=== PATIENT | female | born 1995 | race Caucasian/White ===

== ENCOUNTER 2020-07-16 06:17 | Inpatient (IN) | payer OTHER, SELFPAY ==
[2020-07-16] VITALS (13 sets, daily range): BP systolic 86–135; BP diastolic 53–81; PULSE 62–91; RESP 16–18; TEMP 36.8–37.2; O2SAT 97
[2020-07-16] MEDS: LACTATED RINGERS 1,000 ML 125 ML IV CONT (06:50)
[2020-07-16 07:04] LABS: Basophils Percent Auto 0.2 % (0.2-1.2); Eosinophils Absolute Auto 0.1 K/mm3 (0-0.3); Eosinophils Percent Auto 0.3 % (0-4.4); Hematocrit 40.3 % (37.0-47.0); Hemoglobin 13.4 g/dL (12.0-15.0); Immature Granulocyte Absolute 0.07 K/mm3 (0.00-0.031); Immature Granulocyte Percent A 0.5 % (0-0.5); Lymphocytes Absolute Auto 2.45 K/mm3 (0.9-3.2); Mean Corpuscular HGB Conc 33.3 g/dl (32-36); Mean Corpuscular Hemoglobin 26.5 pg (26-34); Mean Corpuscular Volume 79.6 fl (80-100); Mean Platelet Volume 10.5 fl (7.4-10.4); Monocytes Absolute Auto 0.9 K/mm3 (0.1-0.6); Platelet Count Result 245 k/mm3 (150-375); Red Blood Count 5.06 M/mm3 (4.2-5.4); Red Cell Distribution Width 14.1 % (11.5-14.5); White Blood Count 14.5 K/mm3 (4.5-10.0)
[2020-07-16] MEDS: OXYTOCIN 30 UNITS/NS 500 ML 30 UNITS/500 ML BAG IV CONT (07:36)
--- NOTE | 2020-07-16 07:58 | PM.OBPRVD ---
OB - Delivery Note Procedure Delivery date: 07/16/20 Intrapartal events: None Induction method: none Delivery monitor: external FHT Route of delivery: Laceration description: None Specimen: No Estimated blood loss (mL): 57 Anesthesia type: None Disposition: floor [place] Baby Date of : 07/16/20 Time of : 07:31 Weeks of gestation at delivery: 39 gender: Female presentation: vertex position: Right Occiput Anterior Placenta delivery description: Spontaneous cord vessel description: 3 Vessels score one minute: 8 score five minutes: 9
--- NOTE | 2020-07-16 08:00 | PM.IMHP ---
H&P: HPI History of Present Illness Date/Time: 07/16/20 08:00 Chief complaint: Labor Narrative: Merna Broussard is a 25 year old female whose EDC is 07/23/2020 presents at 39 weeks gestation in active labor. She is negative for group B strep in her has been uncomplicated Review of Systems Review of Systems: All systems reviewed & are unremarkable except as noted in HPI and below PMFSH Family History Family History Father Leukemia Rheumatoid arthritis Mother Hypoglycemia Sibling Diabetes type 2, controlled Grandparent Kidney failure Hypertension Grandparent Cancer Social History Social History Substance use: never Spiritual care concerns: No Meds Home Medications and Allergies Home Medications Medication Instructions Recorded Confirmed Type PNV cmb#95-ferrous fumarate-FA 1 tablet PO DAILY 06/27/20 06/27/20 History [] ergocalciferol (vitamin D2) 1,250 mcg PO WEEKLY 06/27/20 06/27/20 History [Vitamin D2] metformin 500 mg PO BID 06/27/20 06/27/20 History Allergies Allergy/AdvReac Type Severity Reaction Status Date / Time No Known Allergies Allergy Verified 06/27/20 13:40 Vital Signs Vital Signs - 24 hr 07/16/20 06:58 07/16/20 07:00 07/16/20 07:23 Pulse Rate 74 91 Blood Pressure 89/63 L 108/78 116/81 07/16/20 07:45 Pulse Rate 86 Blood Pressure 127/76 Exam Const: General: no acute distress Eyes: General: appearance normal, both eyes and all related structures Neck: Neck: supple and no JVD Thyroid: thyroid normal Resp: Effort & Inspection: normal respiratory effort Auscultation: clear to auscultation bilaterally Cardio: Rate: regular rate Rhythm: regular rhythm GI: Inspection: non-distended GI Palp: Yes Soft to palpation, No Tenderness to palpation present (GI) and No Guarding due to palpation present (GI) Auscultation: normal bowel sounds : Speculum Exam - Cervix: normal appearance of the cervix ( cervix is 6-7 on admission went complete quickly clear fluid is seen. FHT) Skin: General skin exam: no rashes or lesions noted Extrem: General: normal to inspection and no edema Psych: Mental Status: mental status grossly normal Affect: normal affect H&P: Results Labs Labs: Short CBC 07/16/20 Range/Units 06:56 WBC 14.5 H (4.5-10.0) K/mm3 Hgb 13.4 (12.0-15.0) g/dL Hct 40.3 (37.0-47.0) % Plt Count 245 (150-375) k/mm3 Assessment and Plan Additional Plan impression: Term in active labor Plan: Immediate spontaneous vaginal delivery is expected
[2020-07-16] MEDS: OXYTOCIN 30 UNITS/NS 500 ML 30 UNITS/500 ML BAG 125 UNITS IV CONT (08:05)
[2020-07-16 08:45] LABS: HIV 1/2 Ab P24 Ag Result Negative (Negative)
--- NOTE | 2020-07-16 08:53 | LDADM ---
This patient, Merna Broussard, was admitted to Labor/Delivery/Recovery 107 on 07/16/20 at 06:17. Plans for labor, pain management and were discussed with patient. Patient/family oriented to hospital policies and general routines including ID bracelet, bed and alarms, visiting hours, pain management, procedures, bathroom and other care routines, personal items, smoking policy, room service/diet and guest tray routines, infant security routines, and visiting hours. Patient/Family are encouraged to report perceived risks to care and to ask questions if they do not understand what they are told or what they should do. See OBIX for further documentation.
[2020-07-16] MEDS: IBUPROFEN 600 MG TABLET PO (10:38)
[2020-07-16] MEDS: BENZOCAINE 20% AER SPR (*SP) 56 GM CAN 1 SPRAY TOPICAL (10:38)
[2020-07-16] MEDS: WITCH HAZEL 40 PADS 1 PAD TOPICAL (10:39)
--- NOTE | 2020-07-16 10:42 | OBPPTRN ---
Patient transferred to post room # 292 via wheelchair. Support person present. Oriented to unit, room, information board, rooming in, admission packet and security measures. Patient verbalizes understanding.
[2020-07-17 05:22] LABS: Hematocrit 40.3 % (37.0-47.0)
--- NOTE | 2020-07-17 06:31 | PM.DS ---
DS: Admitting Diagnosis Admitting Diagnosis Admitting Diagnosis: Labor DS: Discharge Diagnosis Discharge Diagnosis (1) Term of female : Code(s): Z37.0 - Single live Status: Acute DS: Summary Time Spent with Patient Time attestation: Total time spent providing and/or coordinating discharge services: The patient was admitted for induction of labor. Her hospital course was unremarkable. She remained afebrile. She was up, voiding without difficulty, eating, and generally without complains she was discharged without reservation. Her condition was stable Exam Const: General: no acute distress Eyes: General: appearance normal, both eyes and all related structures Neck: Neck: supple and no JVD Thyroid: thyroid normal Resp: Effort & Inspection: normal respiratory effort Auscultation: clear to auscultation bilaterally Cardio: Rate: regular rate Rhythm: regular rhythm GI: Inspection: non-distended GI Palp: Yes Soft to palpation, No Tenderness to palpation present (GI) and No Guarding due to palpation present (GI) Auscultation: normal bowel sounds : General: Yes bladder normal to palpation External Female Exam: normal external appearance Speculum Exam - Vagina: normal vaginal discharge and No vaginal bleeding Speculum Exam - Cervix: nontender Bimanual exam- vagina & uterus: bladder normal to palpation and No Cervical tenderness present OB/external & speculum: No vaginal bleeding Skin: General skin exam: no rashes or lesions noted Extrem: General: normal to inspection and no edema Psych: Mental Status: mental status grossly normal Affect: normal affect DS: Data Data Completed and Pending Labs on day of discharge: Labs from last 24 hours 07/17/20 07/16/20 07/16/20 04:45 07:45 06:56 WBC RBC Hgb 13.0 Hct 40.3 MCV MCH MCHC RDW Plt Count MPV Immature Gran % (Auto) Neut % (Auto) Lymph % (Auto) [place] % (Auto) Eos % (Auto) Baso % (Auto) Lymph # (Auto) [place] # (Auto) Eos # (Auto) Baso # (Auto) Abs Immat Gran (auto) Absolute Neuts (auto) Absolute Nucleated RBC Nucleated RBC % RPR HIV 1&2 Ab/P24 Ag 4thGn Negative Blood Type O Positive Antibody Screen Negative 07/16/20 07/16/20 06:56 06:56 WBC 14.5 H RBC 5.06 Hgb 13.4 Hct 40.3 MCV 79.6 L MCH 26.5 MCHC 33.3 RDW 14.1 Plt Count 245 MPV 10.5 H Immature Gran % (Auto) 0.5 Neut % (Auto) 76.0 H Lymph % (Auto) 17.0 L [place] % (Auto) 6.0 Eos % (Auto) 0.3 Baso % (Auto) 0.2 Lymph # (Auto) 2.45 [place] # (Auto) 0.9 H Eos # (Auto) 0.1 Baso # (Auto) 0.0 Abs Immat Gran (auto) 0.07 H Absolute Neuts (auto) 11.0 H Absolute Nucleated RBC 0.0 Nucleated RBC % 0.0 RPR Pending HIV 1&2 Ab/P24 Ag 4thGn Blood Type Antibody Screen Discharge Plan Discharge Attending physician on discharge: Gavin Elizondo Discharging Clinician: Gavin Elizondo Patient Disposition: Home, Self-Care Activity: may shower, no straining and pelvic rest Diet: heart healthy Patient Instructions: Antibiotic Form Stand Alone Forms: General Discharge Information Follow-up/Referrals: Gavin Elizondo MD [Physician] - Discharge Medications: Continued metformin 500 mg Tablet 500 mg PO BID RF: 0 ergocalciferol (vitamin D2) [Vitamin D2] 1,250 mcg (50,000 unit) Capsule 1,250 mcg PO WEEKLY RF: 0 PNV cmb#95-ferrous fumarate-FA [] 28 mg iron- 800 mcg Tablet 1 tablet PO DAILY RF: 0 Date of admission: 07/16/20 06:17 Primary Care Provider: Caren,Alvino Cool Admitting Provider: Gavin Elizondo Attending physician on admission: Gavin Elizondo
--- NOTE | 2020-07-17 06:34 | PM.OBPNVD ---
OB - PN: Subj Subjective Date/time seen: 07/17/20 06:34 Patient comments: no complaints and pain well controlled baby status: doing well and nursing well OB - PN: Obj Data Labs CBC & Chem 7: 07/17/20 04:45 Labs: Laboratory Results - last 24 hr 07/16/20 07/16/20 07/16/20 06:56 06:56 07:45 WBC 14.5 H RBC 5.06 Hgb 13.4 Hct 40.3 MCV 79.6 L MCH 26.5 MCHC 33.3 RDW 14.1 Plt Count 245 MPV 10.5 H Immature Gran % (Auto) 0.5 Neut % (Auto) 76.0 H Lymph % (Auto) 17.0 L [place] % (Auto) 6.0 Eos % (Auto) 0.3 Baso % (Auto) 0.2 Lymph # (Auto) 2.45 [place] # (Auto) 0.9 H Eos # (Auto) 0.1 Baso # (Auto) 0.0 Abs Immat Gran (auto) 0.07 H Absolute Neuts (auto) 11.0 H Absolute Nucleated RBC 0.0 Nucleated RBC % 0.0 HIV 1&2 Ab/P24 Ag 4thGn Negative Blood Type O Positive Antibody Screen Negative 07/17/20 04:45 WBC RBC Hgb 13.0 Hct 40.3 MCV MCH MCHC RDW Plt Count MPV Immature Gran % (Auto) Neut % (Auto) Lymph % (Auto) [place] % (Auto) Eos % (Auto) Baso % (Auto) Lymph # (Auto) [place] # (Auto) Eos # (Auto) Baso # (Auto) Abs Immat Gran (auto) Absolute Neuts (auto) Absolute Nucleated RBC Nucleated RBC % HIV 1&2 Ab/P24 Ag 4thGn Blood Type Antibody Screen OB - PN A/P Plan day: 1 Plan: routine care, discharge home and follow up 6 weeks Time Spent With Patient Time: Total time spent is greater than 50% in coordination of care (as documented) at patient's floor/unit and/or counseling patient: Time with patient: less than 15 minutes Review of Systems Review of Systems: All systems reviewed & are unremarkable except as noted in HPI and below Exam Const: General: no acute distress Eyes: General: appearance normal, both eyes and all related structures Neck: Neck: supple and no JVD Thyroid: thyroid normal Resp: Effort & Inspection: normal respiratory effort Auscultation: clear to auscultation bilaterally Cardio: Rate: regular rate Rhythm: regular rhythm GI: Inspection: non-distended GI Palp: Yes Soft to palpation, No Tenderness to palpation present (GI) and No Guarding due to palpation present (GI) Auscultation: normal bowel sounds : General: Yes bladder normal to palpation External Female Exam: normal external appearance Speculum Exam - Vagina: normal vaginal discharge and No vaginal bleeding Speculum Exam - Cervix: nontender Bimanual exam- vagina & uterus: bladder normal to palpation and No Cervical tenderness present OB/external & speculum: No vaginal bleeding Skin: General skin exam: no rashes or lesions noted Extrem: General: normal to inspection and no edema Psych: Mental Status: mental status grossly normal Affect: normal affect
[2020-07-17 07:50] VITALS: BP 129/70; PULSE 74; RESP 18; TEMP 36.3; O2SAT 95
[2020-07-17] MEDS: MULTIVIT/MIN/PREN/FOL AC/IRON TABLET 1 TAB PO (08:42)
[2020-07-17] MEDS: IBUPROFEN 600 MG TABLET PO (08:42)
[2020-07-17 09:15] LABS: Rapid Plasma Reagin Non-Reactive (NonReactive)
[2020-07-18 11:50] VITALS: BP 124/71; PULSE 78; RESP 20; TEMP 36.9; O2SAT 100
== END 2020-07-17 12:18 | disposition home or self-care (01) | DRG 560 ==
LOC: ANHLDR 06:42 → ANHOB2 11:12
PROVIDERS: Admitting Provider Obstetrics & Gynecology; PCP Family Medicine; Visit Provider Obstetrics & Gynecology
DX: O70.0 First degree perineal laceration during delivery (principal); Z3A.39 39 weeks gestation of pregnancy; Z37.0 Single live birth; Z23 Encounter for immunization
CPT/HCPCS: 36415; 85014; 85018; 85025; 86592; 86703; 86850; 86900; 86901; 90471; 90653; A9270; G0008; G0432; J2590; J2795; J7120

== ENCOUNTER 2020-07-23 12:07 | Outpatient (RCR) | payer OTHER, SELFPAY ==
--- NOTE | 2020-07-23 13:00 | PC.NURSE ---
IN 1100 OUT 1150 HISTORY: Pt. delivered at [facility] at 39 weeks. had no complications after delivery. Mother had no complications after delivery. Infant is now 7 days old. appears to be well cared for. has been seen by ICP as scheduled. Infant last seen by ICP at 5 days old. Mother reports: Mother is unsure if is getting enough with . is latching eagerly most feedings. Mother has pain with right beast, no pain with left. Right nipple has a small reddened area from possible shallow latch. Output is WNL and infant is feeding as required. Mother reports infant is sleepy at first and fights latch for 10-15 minutes before latching and she has to stimulate to keep infant awake while feeding. Mother pumped and bottle fed with first child. Mother continues to wake infant to feed by2.5 hours during the day and at 3.5 at night. Mother wishes: To improve latch and feed without discomfort. Currently at 8 wets per day and 1 yellow seedy stools per day. Will freq. skip a day without stool. weight: 7#14 Discharge weight: 7#7 Last Weight: 7#15 Pre feeding weight: Post feeding weight: OBSERVATION: Both nipples are slightly reddened, right has a small abrasion to center, from possible shallow latch. Right nipple has small profile compared to left. Mother uses cradle to initiate latch. Infant makes multiple eager efforts to latch and is unable to draw nipple in. Reviewed positioning/alignment in cross cradle, holding breast in U hold and guided asymmetrical latch on. Discussed the rational for each. Within a few attempts, infant was able to latch correctly. Advised mother to continue to hold breast in U hold during entire feeding. Infant nursed eagerly, with steady draws and frequent swallowing noted. Reviewed signs of a correct latch, effective nursing and suck swallow ratio. was able to maintain latch without discomfort to mother. Discussed how holding breast assisted infant with increased intake and assisted with maintaining deep latch. Nipple care reviewed. Demonstrated how to adjust latch more deeply while feeding. Mother was able to independently latch deeply when switching to other breast. PLAN: Mother will follow above feeding plan using techniques for deeper latch. Advised mother to allow to sleep for 3 hours during the day and up to 1- 5 hour sleep period at night before waking to feed. Advised allowing infant to wake for feeding may assist with infant being more awake and making eager attempts to latch, preventing sleepy latching and on and off attempts for 10-15 minutes. Mother will call with further questions or concerns.
== END 2020-08-13 09:08 | disposition home or self-care (01) ==
LOC: ANHOBOP 12:07
PROVIDERS: PCP Family Medicine; Visit Provider Pediatrics
DX: Z39.1 Encounter for care and examination of lactating mother (principal)
CPT/HCPCS: 99212; G0463

== ENCOUNTER 2022-04-01 17:31 | Outpatient (CLI) | payer OTHER, SELFPAY ==
[2022-04-01 18:23] LABS: Immunoglobulin A 196 mg/dL (70-400); Immunoglobulin G 1363 mg/dL (700-1600)
[2022-04-06 10:25] LABS: Tissue Transglutaminase IgA Ab <1.0 U/mL (<15.0)
== END 2022-04-01 17:32 | disposition home or self-care (01) ==
LOC: ANHLAB 17:35
PROVIDERS: PCP Family Medicine
DX: K90.41 Non-celiac gluten sensitivity (principal)
CPT/HCPCS: 36415; 82784; 83516

== ENCOUNTER 2022-04-29 17:36 | Outpatient (CLI) | payer OTHER, SELFPAY ==
[2022-04-29 18:26] LABS: Immunoglobulin A 215 mg/dL (70-400); Immunoglobulin G 1508 mg/dL (700-1600)
[2022-05-05 13:22] LABS: Tissue Transglutaminase IgA Ab <1.0 U/mL (<15.0)
== END 2022-04-29 17:37 | disposition home or self-care (01) ==
LOC: ANHLAB 17:41
PROVIDERS: PCP Family Medicine
DX: K90.41 Non-celiac gluten sensitivity (principal)
CPT/HCPCS: 36415; 82784; 83516

== ENCOUNTER 2022-07-20 17:41 | Emergency (ER) | payer OTHER, SELFPAY ==
[2022-07-20 17:59] VITALS: BP 140/81; PULSE 94; RESP 16; TEMP 36.3; O2SAT 100
[2022-07-20 19:11] LABS: Basophils Percent Auto 0.4 % (0.2-1.2); Eosinophils Absolute Auto 0.1 K/mm3 (0-0.3); Eosinophils Percent Auto 0.6 % (0-4.4); Hemoglobin 13.4 g/dL (12.0-15.0); Immature Granulocyte Absolute 0.07 K/mm3 (0.00-0.031); Immature Granulocyte Percent A 0.6 % (0-0.5); Lymphocytes Absolute Auto 3.04 K/mm3 (0.9-3.2); Lymphocytes Percent Auto 26.8 % (18.3-44.2); Mean Corpuscular HGB Conc 32.7 g/dl (32-36); Mean Corpuscular Hemoglobin 27.9 pg (26-34); Mean Corpuscular Volume 85.2 fl (80-100); Mean Platelet Volume 9.9 fl (7.4-10.4); Monocytes Absolute Auto 0.7 K/mm3 (0.1-0.6); Monocytes Percent Auto 6.1 % (2.6-8.5); Neutrophils Absolute Auto 7.4 K/mm3 (1.3-6.7); Neutrophils Percent Auto 65.5 % (45.5-73.1); Platelet Count Result 250 k/mm3 (150-375); Red Blood Count 4.81 M/mm3 (4.2-5.4); Red Cell Distribution Width 13.6 % (11.5-14.5); White Blood Count 11.4 K/mm3 (4.5-10.0)
[2022-07-20 19:46] LABS: Appearance Urine Clear (Clear); Bilirubin Urine Negative (Negative); Blood Urine 2+ (Negative); Color Urine Yellow (Yellow); Glucose Urine UA Negative (Negative); Ketones Urine Negative (Negative); Leukocyte Esterase Ur Negative LEU/UL (Negative); Nitrate Urine Negative (Negative); Protein Urine Negative (Negative); Specific Grav Ur 1.015 (1.001-1.035); Urobilinogen Urine 0.2 mg/dL (<2.0)
[2022-07-20 19:51] LABS: Bacteria Urine Trace /hpf; Mucus Urine Rare /lpf; Squamous Epithelial Cell Urine Moderate /hpf (Few); WBC Urine 0-3 /hpf
[2022-07-20 19:56] LABS: Add Urine Microscopic? YES
--- NOTE | 2022-07-20 21:58 | ED.PREGNANCY ---
HPI - General Chief complaint: Vaginal Bleeding Stated complaint: 15 weeks passed one blood clot Time Seen by Provider: 07/20/22 21:39 Source: patient Mode of arrival: ambulatory Limitations: no limitations History of Present Illness HPI Narrative: Patient is a 27 y/o female who presents the ED with report of vaginal bleeding. Patient is G3, P2 and currently 15 weeks . Her IRONWORKER is Dr. Malachi Mosquera. She states around 4 PM today she passed a large blood clot. She has had minimal bleeding since then. Some light pink with wiping, but not enough to to fill her pantiliner. She does have known IUP with subchorionic hematoma seen on last US. Patient denies other symptoms. Denies abdominal pain, nausea, vomiting, diarrhea, constipation, dysuria, hematuria, rectal bleeding, fevers. Related Data Home Medications Medication Instructions Recorded Confirmed ergocalciferol (vitamin D2) 1,250 1,250 mcg PO WEEKLY 06/27/20 06/27/20 mcg (50,000 unit) capsule (Vitamin D2) metformin 500 mg tablet 500 mg PO BID 06/27/20 06/27/20 vit no.95-ferrous 1 tablet PO DAILY 06/27/20 06/27/20 fumarate 28 mg-folic acid 800 mcg tablet () Allergies Allergy/AdvReac Type Severity Reaction Status Date / Time No Known Allergies Allergy Verified 06/27/20 13:40 Review of Systems Review of Systems: CONSTITUTIONAL: Denies fever, chills, or sweats. CARDIOVASCULAR: Denies chest pain. RESPIRATORY: Denies dyspnea. GASTROINTESTINAL: Denies abdominal pain, nausea, vomiting, rectal bleeding, or diarrhea. GENITOURINARY: Reports vaginal bleeding with clot. Denies dysuria or hematuria. MUSCULOSKELETAL: Denies back pain. All systems reviewed & are unremarkable except as noted in HPI and below PMFSH Past Medical History Medical History No pertinent past medical history Surgical History Surgical History (Updated 07/20/22 @ 22:15 by Cassie English PA-C) No pertinent past surgical history Family History Family History Father Leukemia Rheumatoid arthritis Mother Hypoglycemia Sibling Diabetes type 2, controlled Grandparent Kidney failure Hypertension Grandparent Cancer Social History Social History Smoking status: Never smoker Substance use: never Spiritual care concerns: No Exam Narrative: GENERAL: Well appearing, morbidly obese, non-toxic, in no acute distress. HEAD: Normocephalic, atraumatic. NECK: Supple. No adenopathy, no masses. RESPIRATORY: Airway patent, respirations nonlabored. Clear to auscultation bilaterally, no rales, rhonchi, wheezing. CARDIOVASCULAR: Regular rate and rhythm without murmurs, rubs, or gallops. Peripheral pulses 2+ and equal bilaterally. ABDOMINAL: Soft, no significant tenderness palpation, nondistended, no hepatosplenomegaly. Normoactive BS. PELVIC: Normal external genitalia. Cervix appears closed, no blood coming from cervical os. Some dark brown discharge/blood in vaginal vault, no pooling or hemorrhage. No significant CMT. MUSCULOSKELETAL: Moves all extremities. Strength/ROM intact without gross deformities. SKIN: Warm, dry, normal color. No rashes. NEURO: A&O X3. Speech clear. Cranial nerves II-XII grossly intact. Steady gait. No ataxic movements. PSYCHIATRIC: Appropriate mood and affect. Normal interaction. Course Consultations Consultation #1: Discussed case with Dr. Walter, OBGYN, advised to have patient follow in office. Will obtain US then. Pelvic rest. Date: 07/20/22 Time: 22:46 Vital Signs Vital signs: Vital Signs Temperature 97.4 F L 07/20/22 17:59 Pulse Rate 94 07/20/22 17:59 Respiratory Rate 16 07/20/22 17:59 Blood Pressure 140/81 07/20/22 17:59 Pulse Oximetry 100 07/20/22 17:59 Oxygen Delivery Room Air 07/20/22 17:59 T
[2022-07-20 22:59] VITALS: PULSE 88; RESP 18; O2SAT 98
== END 2022-07-20 23:01 | disposition home or self-care (01) ==
PROVIDERS: Emergency Medicine; Emergency Provider Emergency Medicine; PCP Family Medicine
DX: O20.9 Hemorrhage in early pregnancy, unspecified (principal); Z3A.15 15 weeks gestation of pregnancy
CPT/HCPCS: 36415; 81001; 81025; 84702; 85025; 85461; 99284

== ENCOUNTER 2022-10-05 15:32 | Outpatient (CLI) | payer OTHER, SELFPAY ==
--- NOTE | ~2022-10-05 | US_ITS ---
Duplex Sonography of the right extremity: Indication: Pain and swelling Sagittal and transverse B-mode images as well as color-flow imaging were performed on the right femor al and popliteal veins. B-mode examination was done without and with compression in the transverse p jung. There is good visualization of the common femoral, proximal profunda femoral, superficial femo ral, greater saphenous, and popliteal veins. Normal flow was seen on color-flow imaging. Normal comp ressibility was demonstrated. Right posterior tibial and peroneal veins are also patent. The contralateral common femoral vein was evaluated for comparison, and demonstrated normal flow and compressibility. Impression: No evidence of deep vein thrombosis in the right lower extremity. Reviewed, dictated and finalized at location [employer] Impression: No evidence of deep vein thrombosis in the right lower extremity.
--- NOTE | 2022-10-05 16:40 | PC.NURSE ---
4969- Spoke with Dr. Malachi Mosquera, dopplers reviewed. Orders to discharge to home after a reactive NST.
--- NOTE | 2022-10-05 16:40 | PC.NURSE ---
1548- Spoke with Dr. Malachi Mosquera, patient presented for right lower leg veins that are painful and warm to the touch. Right lower limb doppler ordered.
[2022-10-05 16:52] VITALS: BP 114/63
== END 2022-10-05 16:55 | disposition home or self-care (01) ==
LOC: ANHOBOP 15:39
PROVIDERS: PCP Family Medicine; Visit Provider Obstetrics & Gynecology
DX: O13.9 Gestational [pregnancy-induced] hypertension without significant proteinuria, unspecified trimester (principal); Z3A.00 Weeks of gestation of pregnancy not specified
CPT/HCPCS: 59025; 93971

== ENCOUNTER 2022-11-08 18:29 | Observation (INO) | payer OTHER, SELFPAY ==
[2022-11-08 19:30] VITALS: RESP 16; TEMP 36.4
[2022-11-08 19:31] VITALS: BP 124/56; PULSE 92
[2022-11-08 19:46] VITALS: BP 112/53; PULSE 93
--- NOTE | 2022-11-08 20:15 | PC.NURSE ---
Pt here for complaints of a gush of fluid while using the restroom. Speculum exam done with ROM plus. Rom plus was negative. During speculum exam white discharge noted but no clear fluid. Pt denies contractions. No contractions palpated or picked up by TOCO. Pt denies any urinary/vaginal symptoms. Pt is on day 10 of a 10 day course of antibiotics for a yeast infection. Called Dr. Dietz with above information. Orders to discharge patient home.
--- NOTE | 2022-11-08 20:39 | OBADM ---
This patient, Merna Broussard, admitted to the OB room OB Post 113 for observation. Patient/family oriented to hospital policies and general routines including ID bracelet, bed and alarms, visiting hours, pain management, procedures, bathroom and other care routines, personal items, smoking policy, room service/diet, and visiting hours. Patient/Family are encouraged to report perceived risks to care and to ask questions if they do not understand what they are told or what they should do.
--- NOTE | 2022-12-02 12:39 | PM.OBTRLD ---
OB - Triage/Final Diagnosis Visit Information Comments/Additional reasons for admission: I have assessed the risk for this patient, Merna Broussard, and determined that she would benefit from observation care. Final Diagnosis (1) Vaginal discharge during : Code(s): O26.899 - Other specified related conditions, unspecified trimester; N89.8 - Other specified noninflammatory disorders of vagina Status: Acute
== END 2022-11-08 20:35 | disposition home or self-care (01) ==
PROVIDERS: Admitting Provider Obstetrics & Gynecology; PCP Family Medicine; Visit Provider Obstetrics & Gynecology
DX: O26.899 Other specified pregnancy related conditions, unspecified trimester (principal); N89.8 Other specified noninflammatory disorders of vagina; Z3A.00 Weeks of gestation of pregnancy not specified
CPT/HCPCS: 59025; 84112; G0378; G0379

== ENCOUNTER 2023-01-10 01:39 | Inpatient (IN) | payer OTHER, SELFPAY ==
[2023-01-10] VITALS (82 sets, daily range): BP systolic 91–141; BP diastolic 41–101; PULSE 55–135; RESP 16–18; TEMP 36–37; O2SAT 98–100; BMI 48.2
--- NOTE | 2023-01-10 01:39 | LDADM ---
This patient, Merna Broussard, was admitted to Labor/Delivery/Recovery 103 on 01/10/23 at 01:39. Plans for labor, pain management and were discussed with patient. Patient/family oriented to hospital policies and general routines including ID bracelet, bed and alarms, visiting hours, pain management, procedures, bathroom and other care routines, personal items, smoking policy, room service/diet and guest tray routines, infant security routines, and visiting hours. Patient/Family are encouraged to report perceived risks to care and to ask questions if they do not understand what they are told or what they should do. See OBIX for further documentation.
[2023-01-10] MEDS: LACTATED RINGERS 500 ML 999 ML IV CONT (02:05)
[2023-01-10 02:32] LABS: Basophils Absolute Auto 0.1 K/mm3 (0.0-0.1); Basophils Percent Auto 0.4 % (0.2-1.2); Eosinophils Absolute Auto 0.1 K/mm3 (0-0.3); Eosinophils Percent Auto 0.4 % (0-4.4); Hematocrit 41.4 % (37.0-47.0); Hemoglobin 13.1 g/dL (12.0-15.0); Immature Granulocyte Absolute 0.06 K/mm3 (0.00-0.031); Immature Granulocyte Percent A 0.4 % (0-0.5); Lymphocytes Absolute Auto 4.09 K/mm3 (0.9-3.2); Lymphocytes Percent Auto 28.8 % (18.3-44.2); Mean Corpuscular HGB Conc 31.6 g/dl (32-36); Mean Corpuscular Hemoglobin 25.2 pg (26-34); Mean Corpuscular Volume 79.8 fl (80-100); Monocytes Percent Auto 6.7 % (2.6-8.5); Neutrophils Percent Auto 63.3 % (45.5-73.1); Platelet Count Result 253 k/mm3 (150-375); Red Blood Count 5.19 M/mm3 (4.2-5.4); Red Cell Distribution Width 14.9 % (11.5-14.5); White Blood Count 14.2 K/mm3 (4.5-10.0)
--- NOTE | 2023-01-10 02:37 | WPDANESEPP ---
Anes - Eval Pre Procedure Procedure: Labor epidural Date/Time: 01/10/23 02:37 Surgeon: Malachi Mosquera Preop Diagnosis: Abd pain with contractions Pre Op Diagnosis: IOL Patient Data Age: 27 Gender: F Height: 1.65 m Weight: 131.5 kg Last Vital Signs Temp 96.8 F L 01/10/23 01:55 Pulse 135 H 01/10/23 02:31 BP 132/101 H 01/10/23 02:31 O2 Del Method Room Air 01/10/23 02:03 Allergies Allergy/AdvReac Type Severity Reaction Status Date / Time No Known Allergies Allergy Verified 11/08/22 20:41 Home Medications Medication Instructions Recorded Confirmed Type ergocalciferol (vitamin D2) 1,250 1,250 mcg PO WEEKLY 06/27/20 06/27/20 History mcg (50,000 unit) capsule (Vitamin D2) metformin 500 mg tablet 500 mg PO BID 06/27/20 06/27/20 History vit no.95-ferrous 1 tablet PO DAILY 06/27/20 06/27/20 History fumarate 28 mg-folic acid 800 mcg tablet () Laboratory Tests 01/10/23 01/10/23 02:26 02:26 WBC Pending RBC Pending Hgb Pending Hct Pending MCV Pending MCH Pending MCHC Pending RDW Pending Plt Count Pending MPV Pending Immature Gran % (Auto) Pending Neut % (Auto) Pending Lymph % (Auto) Pending [place] % (Auto) Pending Eos % (Auto) Pending Baso % (Auto) Pending Lymph # (Auto) Pending [place] # (Auto) Pending Eos # (Auto) Pending Baso # (Auto) Pending Abs Immat Gran (auto) Pending Absolute Neuts (auto) Pending Absolute Nucleated RBC Pending Nucleated RBC % Pending RPR Pending Patient hx anesthesia problems: none Family hx anesthesia problems: none Results Review: All pre-operative results and documents have been reviewed as part of the pre-operative evaluation. [facility] Past Medical History Medical History Morbid obesity No pertinent past medical history PCOS (polycystic ovarian syndrome) and not yet delivered Surgical History Surgical History No pertinent past surgical history Family History Family History Father Leukemia Rheumatoid arthritis Mother Hypoglycemia Sibling Diabetes type 2, controlled Grandparent Kidney failure Hypertension Grandparent Cancer Social History Social History Smoking status: Never smoker Second hand tobacco smoke exposure: No Substance use: never Lack of Transportation: No Lack of Food: Never True Current Housing: I Have Housing Concerned About Future Housing: No Difficulty Paying Gas/Electric Bills: No Difficulty Paying for Meds: No Currently Unemployed: No Education: High School Diploma/GED Difficulty w/ Childcare or Family Care: No Spiritual care concerns: No Exam Day of Procedure 01/10/23 02:37
--- NOTE | 2023-01-10 05:31 | PM.IMHP ---
H&P: HPI History of Present Illness Date/Time: 01/10/23 05:31 Chief Complaint: Labor at term Narrative: this is a 26-year-old 3 para 2 whose last menstrual period was 04/03/2022, EDC is 01/15/2023, presenting at 39 weeks gestation in active labor. Her has been uncomplicated. Is negative for group B strep. She is presently complete and 0 station PMFSH Past Medical History Medical History Morbid obesity No pertinent past medical history PCOS (polycystic ovarian syndrome) and not yet delivered Surgical History Surgical History No pertinent past surgical history Family History Family History Father Leukemia Rheumatoid arthritis Mother Hypoglycemia Sibling Diabetes type 2, controlled Grandparent Kidney failure Hypertension Grandparent Cancer Social History Social History Smoking status: Never smoker Second hand tobacco smoke exposure: No Substance use: never Lack of Transportation: No Lack of Food: Never True Current Housing: I Have Housing Concerned About Future Housing: No Difficulty Paying Gas/Electric Bills: No Difficulty Paying for Meds: No Currently Unemployed: No Education: High School Diploma/GED Difficulty w/ Childcare or Family Care: No Spiritual care concerns: No Meds Home Medications and Allergies Home Medications Medication Instructions Recorded Confirmed Type ergocalciferol (vitamin D2) 1,250 1,250 mcg PO WEEKLY 06/27/20 06/27/20 History mcg (50,000 unit) capsule (Vitamin D2) metformin 500 mg tablet 500 mg PO BID 06/27/20 06/27/20 History vit no.95-ferrous 1 tablet PO DAILY 06/27/20 06/27/20 History fumarate 28 mg-folic acid 800 mcg tablet () Allergies Allergy/AdvReac Type Severity Reaction Status Date / Time No Known Allergies Allergy Verified 11/08/22 20:41 Vital Signs Vital Signs - 24 hr 01/10/23 01:55 01/10/23 01:56 01/10/23 02:00 Temperature 96.8 F L Pulse Rate 83 82 Blood Pressure 128/76 129/85 Pulse Oximetry Oxygen Delivery 01/10/23 02:31 01/10/23 02:51 01/10/23 02:52 Temperature Pulse Rate 135 H 81 Blood Pressure 132/101 H 135/75 Pulse Oximetry 100 Oxygen Delivery 01/10/23 02:54 01/10/23 02:56 01/10/23 02:58 Temperature Pulse Rate 78 80 128 H Blood Pressure 123/78 120/65 96/41 L Pulse Oximetry 100 Oxygen Delivery 01/10/23 02:59 01/10/23 03:01 01/10/23 03:03 Temperature Pulse Rate 72 77 82 Blood Pressure 119/65 129/59 L 117/57 L Pulse Oximetry Oxygen Delivery 01/10/23 03:04 01/10/23 03:05 01/10/23 03:07 Temperature Pulse Rate 81 88 Blood Pressure 116/60 113/56 L Pulse Oximetry 100 Oxygen Delivery 01/10/23 03:08 01/10/23 03:09 01/10/23 03:10 Temperature Pulse Rate 80 82 Blood Pressure 116/61 110/58 L Pulse Oximetry 100 Oxygen Delivery 01/10/23 03:12 01/10/23 03:14 01/10/23 03:17 Temperature Pulse Rate 85 79 79 Blood Pressure 114/57 L 119/62 121/58 L Pulse Oximetry 100 Oxygen Delivery 01/10/23 03:18 01/10/23 03:19 01/10/23 03:20 Temperature Pulse Rate 77 80 Blood Pressure 116/65 115/56 L Pulse Oximetry 100 Oxygen Delivery 01/10/23 03:22 01/10/23 03:24 01/10/23 03:25 Temperature Pulse Rate 77 87 Blood Pressure 116/58 L 117/61 Pulse Oximetry 98 Oxygen Delivery 01/10/23 03:29 01/10/23 03:31 01/10/23 03:34 Temperature Pulse Rate 75 Blood Pressure 110/53 L Pulse Oximetry 98 99 Oxygen Delivery 01/10/23 03:39 01/10/23 03:44 01/10/23 03:46 Temperature Pulse Rate 75 Blood Pressure 123/50 L Pulse Oximetry 98 99 Oxygen Delivery 01/10/23 03:49 01/10/23 03:54
[2023-01-10] MEDS: OXYTOCIN 30 UNITS/NS 500 ML 30 UNITS/500 ML BAG 999 UNITS IV CONT (05:47)
--- NOTE | 2023-01-10 05:53 | PM.OBPRVD ---
OB - Delivery Note Procedure Delivery date: 01/10/23 Induction method: None Delivery monitor: External FHT Route of delivery: Quantitative Blood Loss (ml): 60 Anesthesia type: Epidural Disposition: Floor Baby Date of : 01/10/23 Time of : 05:44 Weeks of gestation at delivery: 39 Infant gender: Female presentation: vertex position: Right Occiput Anterior Placenta delivery description: Spontaneous Cord Vessel Description: 3 Vessels and Delayed Cord Clamping score one minute: 9 score five minutes: 9
--- NOTE | 2023-01-10 06:05 | PM.DS ---
DS: Admitting Diagnosis Discharge Date 01/02/2023 Admitting Diagnosis term labor DS: Discharge Diagnosis Discharge Diagnosis (1) Term : Code(s): Z34.90 - Encounter for supervision of normal , unspecified, unspecified trimester Status: Acute DS: Summary Hospital Course Reason for hospitalization: a term in active labor Hospital Course: this is a 3 para 3 who was admitted at term in active labor. She underwent spontaneous vaginal delivery. Hospital course was remarkable. She remained afebrile. She was up, eating regular diet, voiding without difficulty, ambulating, generally without complaints. Time Spent with Patient Time attestation: Total time spent providing and/or coordinating discharge services: Exam Const: General: cooperative, healthy appearing and comfortable Nutritional Appearance: overweight Orientation/consciousness: oriented to person, oriented to place and oriented to time HENMT: Head: normal to inspection Resp: Effort & Inspection: normal respiratory effort Cardio: Rate: regular rate Rhythm: regular rhythm Heart sounds: S1 normal heart sound present and S2 normal heart sound present GI: Inspection: normal to inspection ( Fundus firm below the umbilicus) DS: Data Data Completed and Pending Labs on day of discharge: Labs from last 24 hours 01/10/23 01/10/23 01/10/23 02:26 02:26 02:26 WBC 14.2 H RBC 5.19 Hgb 13.1 Hct 41.4 MCV 79.8 L MCH 25.2 L MCHC 31.6 L RDW 14.9 H Plt Count 253 MPV 11.0 H Immature Gran % (Auto) 0.4 Neut % (Auto) 63.3 Lymph % (Auto) 28.8 [place] % (Auto) 6.7 Eos % (Auto) 0.4 Baso % (Auto) 0.4 Lymph # (Auto) 4.09 H [place] # (Auto) 1.0 H Eos # (Auto) 0.1 Baso # (Auto) 0.1 Abs Immat Gran (auto) 0.06 H Absolute Neuts (auto) 9.0 H Absolute Nucleated RBC 0.0 Nucleated RBC % 0.0 RPR Pending Blood Type O Positive Antibody Screen Negative Discharge Plan Discharge Attending physician on discharge: Gavin Junior Discharging Clinician: Gavin Junior Patient Disposition: Home, Self-Care Activity: may shower, no straining and pelvic rest Diet: heart healthy Wound Care Instructions: follow printed instructions Patient Instructions: Antibiotic Form Stand Alone Forms: General Discharge Information Follow-up/Referrals: Gavin Junior MD [Physician] - Discharge Medications: Continued metformin 500 mg Tablet 500 mg PO BID ergocalciferol (vitamin D2) [Vitamin D2] 1,250 mcg (50,000 unit) Capsule 1,250 mcg PO WEEKLY PNV cmb#95-ferrous fumarate-FA [] 28 mg iron- 800 mcg Tablet 1 tablet PO DAILY Date of admission: 01/10/23 01:39 Primary Care Provider: Caren,Alvino Cool Admitting Provider: Gavin Junior Attending physician on admission: Gavin Junior Condition: Stable
[2023-01-10] MEDS: OXYTOCIN 30 UNITS/NS 500 ML 30 UNITS/500 ML BAG 125 UNITS IV CONT (06:19)
--- NOTE | 2023-01-10 10:00 | OBPPTRN ---
Patient transferred to post room #287 via wheelchair. Support person present. Oriented to unit, room, information board, rooming in, admission packet and security measures. Patient verbalizes understanding.
[2023-01-10] MEDS: DOCUSATE SODIUM 100 MG CAPSULE PO (11:32)
[2023-01-10] MEDS: IBUPROFEN 600 MG TABLET PO ×2 (11:32→20:14)
[2023-01-10] MEDS: MULTIVIT/MIN/PREN/FOL AC/IRON TABLET 1 TAB PO (11:32)
--- NOTE | 2023-01-10 12:13 | PC.NURSE ---
[id number] Introductions were made, then consulted with patient to assess needs related to . Mother led the conversation with her?plans to feed?her infant and the?experience so far. Resources provided for inpatient and outpatient services with the feeding sheet, mom/baby guide, business card and name written on the white board. Mother voiced understanding of information and requests assistance to wake to breastfeed. Mother works well with her and has a substantial history with her other two children. Encouraged understanding of the benefits of skin to skin (demonstrating unwrapping infant and placing upright on her chest), stimulating with massage touch, changing positions to encourage wakefulness, how to watch for early feeding cues, hand expression, responsive feeding, feeding on demand (aiming for 8-12 times in 24 hours, about every 2-3 hours), milk production, building/maintaining a milk supply, duration of feeding, signs of adequate intake/output and how to record on the feeding sheet. Mother finger fed several big drops of colostrum to her infant to encourage wakefulness to breastfeed. stooled, then demonstrated feeding cues. Reviewed positioning and ear, shoulder, hip alignment, supporting the breast to facilitate a deep latch, asymmetrical latch (off-center), leading with the chin with a big, open, wide gape and body close to mother. latched optimally to the right breast in football position. Education given to mother of how to visualize suck/swallow ratios and listen for drinking at the breast. Infant was able to maintain latch without discomfort to mother. Nipple care reviewed with optimal latch and good positioning. Reminding mother of comfort measures of healing with a warm and wet washcloth to rinse breast, then leave open to air-dry as needed. Reviewed good handwashing when or touching the breast/nipples to prevent infection. Resources used to facilitate learning were used with the mom and baby guide. Mother voiced understanding of skin to skin, stimulating with massage touch, responsive feedings, hand expressed colostrum, talking to infant to encourage if it has been 2 -2.5 hours since the start of the last , to call if infant does not latch, or if there is discomfort with . Mother voiced understanding of information, demonstrated learning and will call if there is a request for assistance. Reported to the primary RN.
[2023-01-10 13:28] LABS: Rapid Plasma Reagin Non-Reactive (NonReactive)
[2023-01-11 05:26] VITALS: BP 154/82; PULSE 73; RESP 18; TEMP 36.5; O2SAT 99
--- NOTE | 2023-01-11 05:42 | PM.OBPNVD ---
OB - PN: Subj Subjective Date/time seen: 01/11/23 05:42 Patient comments: no complaints and pain well controlled baby status: doing well and nursing well OB - PN: Obj Data Labs 01/10/23 02:26 Labs: Laboratory Results - last 24 hr 01/10/23 02:26 RPR Non-reactive OB - PN A/P Plan day: 1 Plan: routine care, discharge home and follow up 6 weeks Time Spent With Patient Time: Total time spent is greater than 50% in coordination of care (as documented) at patient's floor/unit and/or counseling patient: Time with patient: less than 15 minutes Exam Const: General: cooperative, healthy appearing, comfortable, well groomed and overweight Orientation/consciousness: oriented to person, oriented to place and oriented to time HENMT: Head: normal to inspection Resp: Effort & Inspection: normal respiratory effort Cardio: Rate: regular rate Rhythm: regular rhythm Heart sounds: S1 normal heart sound present and S2 normal heart sound present GI: Inspection: normal to inspection ( fundus firm below the umbilicus)
[2023-01-11 07:35] VITALS: BP 117/67; PULSE 69; RESP 20; TEMP 36.6; O2SAT 99
[2023-01-11 07:35] LABS: Hematocrit 37.6 % (37.0-47.0); Hemoglobin 11.7 g/dL (12.0-15.0)
[2023-01-11 08:00] VITALS: PULSE 69; RESP 20; O2SAT 99
[2023-01-11] MEDS: MULTIVIT/MIN/PREN/FOL AC/IRON TABLET 1 TAB PO (09:18)
[2023-01-11] MEDS: IBUPROFEN 600 MG TABLET PO (09:18)
[2023-01-11] MEDS: DOCUSATE SODIUM 100 MG CAPSULE PO (09:18)
--- NOTE | 2023-01-11 09:53 | PC.NURSE ---
On 01/11/23, the student, Shruthi Garza, provided care and completed [facility] documentation on this patient. I have reviewed the student's documentation and agree with the findings.
--- NOTE | 2023-01-11 10:25 | WPDANLDPN2 ---
Anes-Prog Note L&D Date/Time: 01/11/23 10:25 Comfortable throughout: labor and delivery Neuraxial method: epidural Epidural/Spinal procedure site: tender Neuro status: Neuro function grossly intact. Cardiovascular status: normal Respiratory status: normal Airway patency: baseline Mental status: baseline Post-Op hydration status: normal Vital Signs: Last Vital Signs Temp 36.6 C 01/11/23 07:35 Pulse 69 01/11/23 07:35 Resp 20 01/11/23 07:35 BP 117/67 01/11/23 07:35 Pulse Ox 99 01/11/23 07:35 O2 Del Method Room Air 01/10/23 19:48 Pain score (VAS): 3/10 Post-procedural complaints: none Patient feedback: Patient satisfied with anesthetic care.
--- NOTE | 2023-01-11 10:51 | PC.NURSE ---
Patient was given the opportunity to view the discharge video Mother & Baby Care, The First Two Weeks and to ask questions. Patient declined viewing the video and has been given the mother/baby guide for home reference.
--- NOTE | 2023-01-11 11:00 | PC.NURSE ---
[id number] Purposefully rounded to assess needs. Mother is preparing to get into the shower. Reviewed hygiene protecting nipples from infection. Right nipple is inverted and left is dimpled. Mother has been applying ointment to her nipples and states they are sore. Inpatient assistance was offered to assess the latch today. Mother has a successful history. Mother voiced understanding of the education and will place skin to skin and call if the latch is painful or infant doesn't wake to breastfeed.
--- NOTE | 2023-01-11 12:43 | PC.NURSE ---
[id number] Mother requested a consult. Mother is demonstrating her ability to independently latch infant with appropriate positioning/alignment using the u-hold sandwich technique. She denies any nipple discomfort and is responsively . At times infant will make a clicking sound while . Encouraged mother to bring closer to her and support her hand, wrist and forearm with a rolled up blanket. Once infant is supported closer to mother's body the clicking stops. Appropriate suck/swallow ratios are visualized and mother denies pain. is effectively on the right breast in cross cradle positioning. pulls the inverted nipple out, then mother latches infant back effectively feeding. Mother has breastfed two other children successfully for 16 and 22 months and demonstrates her knowledge effectively this . Infant is currently meeting outcomes for weight, output, jaundice and feeding frequencies of 8-12 times in 24 hours. Mother declines any additional assistance/education at this time after working with her, improved latch and questions answered. Mother is encouraged to call for assistance if her doesn?t latch or there is discomfort with latching. Mother voiced understanding of information shared and the mom reminded of the mom/baby guide and outpatient service for an additional resource. Reported to the primary RN.
[2023-01-12 11:41] VITALS: BP 124/80; PULSE 80; RESP 20; TEMP 36.9; O2SAT 98
== END 2023-01-11 12:35 | disposition home or self-care (01) | DRG 560 ==
LOC: ANHLDR 06:07 → ANHOB2 10:03
PROVIDERS: Admitting Provider Obstetrics & Gynecology; PCP Family Medicine; Visit Provider Obstetrics & Gynecology
DX: O70.0 First degree perineal laceration during delivery (principal); Z37.0 Single live birth; Z3A.39 39 weeks gestation of pregnancy
CPT/HCPCS: 36415; 84112; 85014; 85018; 85025; 86592; 86850; 86900; 86901; A9270; J2590; J2795; J7120

== ENCOUNTER 2023-11-24 11:00 | Outpatient (RCR) | payer OTHER, SELFPAY ==
--- NOTE | 2023-09-20 16:25 | OPREHPOC ---
Outpatient Therapy Plan of Care This is a Multidisciplinary Plan of Care that may contain components documented by all disciplines (PT, OT, and ST.) PT Problem 1 PT Problem #1 Knowledge Deficit PT Goal 1 Goal 1. Patient will perform independent HEP Target Visit 5 PT Problem 2 PT Problem #2 Pain PT Goal 1 Goal 1. No back pain with activities including caring for her children and ADL's Target Visit 5 PT Problem 3 PT Problem #3 Impaired Functional ADLs PT Goal 1 Goal 1. Incontinence no more than 1 time per month Target Visit 5 PT Problem 4 PT Problem #4 Impaired Sensation PT Goal 1 Goal 1. Improve pelvic floor strength to 4/5 to decrease incontinence and symptoms of POP Target Visit 5
--- NOTE | 2023-09-20 16:27 | PTOPEVAL1 ---
Assessment and note entered by Twila Martin DPT Evaluation Information Assessment Status Evaluation Subjective Information Pt reports after her last baby she has noticed back/pelvic pain. Pt has been 3 times with 3 deliveries, most recently in December 2022. All vaginal deliveries, tearing with her first and some with her third. Has noticed some back/hip pain as well as pelvic pressure, has been told she has a prolapse. Voids more than 10 times a day, drinks a lot of water due to still . Urinary incontinence a few times a week, very small amounts, and wears a liner at almost all times. Can hold urge at least 30 minutes if needed . Denies pain with urination. BM 1-3 times a day, no pain. Denies fecal incontinence. Has had some pelvic pain in the past with intercourse. Highest recent pain 6-7/10 and lowest 0/10. Patient goal: prevent further issues from prolapse and with toileting Returns to MD in about a year. Reported Pain Level Pain Score 0: Self Report Assessment PT Clinical Summary The patient is presenting to skilled therapy with back pain/pelvic pain, urinary incontinence, and pelvic organ prolapse. She presents with decreased pelvic floor strength, decreased core strength and a diastasis which are contributing to her pain and incontinence. She will highly benefit from therapy to address these impairments in order to reduce pain, incontinence, and improve function. Plan of Care Interventions Electrical Stimulation,Hot Pack/Cold Pack,Manual Therapy,Neuro Re-education,Patient/Caregiver Education,Therapeutic Activities,Therapeutic Exercise PT Services Indicated Yes Treatment Frequency and 1 time a week for 4 weeks Duration These treatments will address the objective and functional deficits as defined above. The patient will be advanced safely and appropriately in order for the patient to progress towards his/her prior level of function. Additional exercises will be introduced and as well as a comprehensive home exercise program upon discharge, if needed, ?to ensure carryover of functional gains achieved in the clinic. This treatment plan has been reviewed and agreement upon by the patient.
--- NOTE | 2023-09-26 11:03 | PCPTNOTE ---
Patient called to cancel appointment 09/26/23 due to illness.
--- NOTE | 2023-10-13 09:54 | PCPTNOTE ---
Patient called to cancel appointment due to a personal conflict.
--- NOTE | 2023-10-20 10:51 | OPREHPOC ---
Outpatient Therapy Plan of Care This is a Multidisciplinary Plan of Care that may contain components documented by all disciplines (PT, OT, and ST.) PT Problem 1 PT Problem #1 Knowledge Deficit PT Goal 1 Goal 1. Patient will perform independent HEP Target Visit 9 Progress Partially Met PT Problem 2 PT Problem #2 Pain PT Goal 1 Goal 1. No back pain with activities including caring for her children and ADL's Target Visit 9 Progress Partially Met Comment improved to 3/10 highest PT Problem 3 PT Problem #3 Impaired Functional ADLs PT Goal 1 Goal 1. Incontinence no more than 1 time per month Target Visit 9 Progress Not Met PT Problem 4 PT Problem #4 Impaired Sensation PT Goal 1 Goal 1. Improve pelvic floor strength to 4/5 to decrease incontinence and symptoms of POP Target Visit 5 Progress Met
--- NOTE | 2023-10-20 10:51 | PTOPPROG ---
Assessment and note entered by Twila Martin DPT Evaluation Information Assessment Status Progress Subjective Information Pt reports improvement with therapy so far. Feels like she is getting small volumes of incontinence most days. Feeling like she is still having difficulty with constipation as well. Hip and back pain has greatly improved. Highest pain in the last week 3/10 and lowest 0/10. Assessment PT Clinical Summary The patient has made some progress in therapy. She reports significantly decreased hip/back pain to 3/10 at the highest. She continues to report frequent incontinence and will benefit from further therapy to address incontinence and pain to allow for full function including caring for her children. Plan of Care Interventions Electrical Stimulation,Hot Pack/Cold Pack,Manual Therapy,Neuro Re-education,Patient/Caregiver Education,Therapeutic Activities,Therapeutic Exercise PT Services Indicated Yes Treatment Frequency and 1 time a week for 6 visits Duration These treatments will address the objective and functional deficits as defined above. The patient will be advanced safely and appropriately in order for the patient to progress towards his/her prior level of function. Additional exercises will be introduced and as well as a comprehensive home exercise program upon discharge, if needed, ?to ensure carryover of functional gains achieved in the clinic. This treatment plan has been reviewed and agreement upon by the patient.
--- NOTE | 2023-11-02 14:03 | PCPTNOTE ---
Patient called to cancel appointment for 11/03/22 due to inclement weather.
--- NOTE | 2023-11-17 09:46 | PCPTNOTE ---
Patient called to cancel appointment 11/17/23 due to her daughter being ill.
--- NOTE | 2023-12-01 09:51 | PCPTNOTE ---
Patient called to cancel appointment 12/01/23 due to illness.
--- NOTE | 2023-12-19 13:35 | PTOPDC ---
Assessment and note entered by Twila Martin DPT Evaluation Information Assessment Status Discharge - Pt Not Present Subjective Information - Assessment PT Clinical Summary Patient did not show for re-evaluation scheduled on 12/15/23 and has not called back to follow up. She will be discharged this date and need a new order to resume therapy in the future. Plan of Care PT Services Indicated No
== END 2023-12-19 12:50 | disposition home or self-care (01) ==
LOC: ANHPT 11:00
PROVIDERS: PCP Family Medicine; Visit Provider Obstetrics & Gynecology
DX: M54.9 Dorsalgia, unspecified (principal); M25.559 Pain in unspecified hip
CPT/HCPCS: 97112; 97140; 97161; 97530; 99199